=== PATIENT | male | born 1965 | race Caucasian/White ===

== ENCOUNTER 2018-10-24 04:20 | Inpatient (IN) | payer MEDICAID ==
[~2018-10-24] VITALS: Ht 175.3 cm; Wt 94.3 kg
[~2018-10-24 04:20] MED LIST: CORTISONE57 GM TP; FLEXERIL PO; HYDROCODON-ACE1 EAC7 PO; HYDROCODONE-AP1 EAC6 PO; NAPROSYN500 MG PO; PERCOCET PO; PREDNISONE 20 M20 M1 PO; ROBAXIN500 MG PO; TORADOL 10 MG T10 MG PO; ZPAK PO
[2018-10-24 04:22] VITALS: BP 122/76
[2018-10-24] MEDS ORDERED: PREDNISONE 20 M20 MG PO (04:25)
[2018-10-24] MEDS ORDERED: METFORMIN HCL500 MG PO (04:26)
[2018-10-24] MEDS ORDERED: PROTONIX 20 MG20 M1 PO (04:26)
[2018-10-24] MEDS ORDERED: FLOMAX0.4 MG PO (04:26)
[2018-10-24] MEDS ORDERED: LYRICA 75 MG CA75 MG PO (04:27)
[2018-10-24 05:01] LABS: HEMATOCRIT 39.7 % (42.0-52.0); HEMOGLOBIN 13.4 gm/dL (14.0-18.0); MCH 29.2 pg (26.0-34.0); MCHC 33.9 g/dL (28.0-37.0); MCV 86.2 fL (80.0-100.0); MPV 6.8 fl. (7.2-11.1); NUCLEATED RBCS 0 /100WBC; PLATELET COUNT* 202 thou/uL (150-400); RDW-CV 17.9 % (10.5-14.5); WBC 5.9 thou/uL (4.0-11.0)
[2018-10-24 05:20] LABS: ALBUMIN 3.4 g/dL (3.4-5.0); CREATININE 1.1 mg/dL (0.6-1.3); POTASSIUM 3.4 mmol/L (3.5-5.1); TOTAL BILIRUBIN 1.9 mg/dL (<0.1-1.0); TOTAL PROTEIN 6.6 g/dL (6.4-8.2)
[2018-10-24 06:26] LABS: ABSOLUTE BASOPHILS 0.1 thou/uL (0.0-0.2); ABSOLUTE EOSINOPHILS 0.1 thou/uL (0.0-0.7); ABSOLUTE LYMPHOCYTES 0.6 thou/uL (0.8-5.3); ABSOLUTE MONOCYTES 0.2 thou/uL (0.0-1.2); ANISOCYTOSIS 1+; MACROCYTES 1+; PLATELET ESTIMATE ADEQUATE
[2018-10-24 07:50] VITALS: BP 130/67
[2018-10-24 09:46] LABS: AMP/METHAMP Negative (Negative); BARBITURATES Negative (Negative); BENZODIAZEPINES Negative (Negative); COCAINE Negative (Negative); METHADONE Negative (Negative); OPIATES Negative (Negative); PCP Negative (Negative); THC Negative (Negative)
[2018-10-24 17:16] VITALS: BP 98/56
[2018-10-24 20:25] VITALS: BP 113/68
[2018-10-25 05:07] LABS: ABSOLUTE LYMPHOCYTES 1.1 thou/uL (0.8-5.3); ABSOLUTE MONOCYTES 0.3 thou/uL (0.0-1.2); BASOPHILS 0.4 %; EOSINOPHILS 0.5 %; HEMATOCRIT 32.1 % (42.0-52.0); LYMPHOCYTES 23.7 %; MCH 30.1 pg (26.0-34.0); MONOCYTES 7.5 %; NUCLEATED RBCS 0 /100WBC; PLATELET COUNT* 176 thou/uL (150-400); POLYS 67.9 %; RBC 3.73 mil/uL (4.50-6.00); RDW-CV 18.6 % (10.5-14.5); WBC 4.5 thou/uL (4.0-11.0)
[2018-10-25 05:11] LABS: CALCIUM 7.2 mg/dL (8.5-10.1); CREATININE 0.9 mg/dL (0.6-1.3)
[2018-10-25 05:53] LABS: HEMOGLOBIN 11.2 gm/dL (14.0-18.0)
[2018-10-25 06:09] LABS: POTASSIUM 2.9 mmol/L (3.5-5.1)
[2018-10-25 08:00] VITALS: BP 113/73
[2018-10-25 12:14] LABS: CALCIUM 7.3 mg/dL (8.5-10.1); CREATININE 0.9 mg/dL (0.6-1.3); MAGNESIUM 1.6 mg/dL (1.8-2.4); PHOSPHORUS* 2.2 mg/dL (2.5-4.9); POTASSIUM 3.5 mmol/L (3.5-5.1)
--- NOTE | 2018-10-25 14:23 | CON ---
[address] [address] CONSULTATION Name: ROXANA LEBLANC Room: [address] M.R.#: [id number] Admission: 10/24/18 Attend Phys: Viral Wolf MD Discharge: Date of : 67 Report #: [id number] THIS REPORT FOR: //name// CC: [facility] physician/PCP Viral Wolf DATE OF SERVICE: 10/24/2018 HISTORY OF PRESENT ILLNESS: This is a 53-year-old male patient who was evaluated by me for the possibility of CIDP. The history is not very clear. It looks like the patient had been to the multiple hospitals. At first, he was at [facility]. He indicated that he did not get along with the neurologist there and he fired the neurologist. Subsequently, he went to [facility]. He apparently had workup there. Presently, he follows up with [facility]. 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 He does indicate that he had a spinal tap and had 3 EMGs. He went to [facility] and they gave him 1 dose of gamma globulin. He tells me that they did not have any more gamma globulin and that is why, they did not give him. He indicates that he is on disability because of the CIDP. REVIEW OF SYSTEMS: Indicate that he was admitted with vomiting and diarrhea. He indicated that it is because of food poisoning. He said he is having some tingling and numbness in the feet and that is how his CIDP starts. He had some ear infections in the past. That was his relevant 14-point review of system. 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 I do not have any records, which confirmed that. FAMILY HISTORY: Negative for any hereditary neuropathy. SOCIAL HISTORY: He says he does not drink any alcohol or use any drugs. PHYSICAL EXAMINATION: Indicate that the patient is alert. He talks very softly. He gets very protective about his diagnosis of CIDP and history becomes pretty unstructured at that time. Cranial nerve examination 2-12 appears unremarkable. He has reasonable strength in all 4 extremities. He indicates his position sense is intact in both lower extremities. His touch is present. His reflexes are diminished. There is no meningeal sign. There is no carotid bruit. His blood pressure is 130/67, respirations 18, pulse is 115, temperature is 99.1. LABORATORY DATA: White count is 5.9. Sodium is 146 and his blood sugar is 179. IMPRESSION: This patient is admitted with gastrointestinal symptoms, but neurological consultation was requested for [place] [address] CONSULTATION Name: ROXANA LEBLANC Room: [address] [place] .#: [id number] Admission: 10/24/18 Attend Phys: Viral Wolf MD Discharge: Date of : 67 Report #: [id number] polyneuropathy. 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 Very poor history is available in that regard. His blood sugar is high and we need to consider the diagnosis of diabetes also. I discussed all of it with the patient, he was not very happy about this discussion. I will basically watch him. Check his hemoglobin A1c. I will await his records. I will check his vital capacity one time. I discussed all of it with the patient. Time spent 50 minutes, more than half the time spent counseling and coordinating his care. I talked to the nurses as well as talked to the hospitalist. <ELECTRONICALLY SIGNED> By: Luis Enrique Coffman MD 10/25/18 1423 [id number] Enrique Coffman MD /nt
[2018-10-25 17:36] VITALS: BP 113/84
[2018-10-25 20:00] VITALS: BP 135/64
[2018-10-26 08:00] VITALS: BP 121/86
[2018-10-26 11:02] VITALS: BP 121/86
[2018-10-26 11:44] LABS: CALCIUM 8.5 mg/dL (8.5-10.1); CREATININE 0.8 mg/dL (0.6-1.3)
== END 2018-10-26 13:50 | disposition home or self-care (01) | DRG 392 ==
LOC: M.ERS 04:20 → M.3W 06:08 → M.TBA-ER 06:08 → M.3W 07:56
PROVIDERS: Emergency Medicine; Internal Medicine; ADMIT Family Medicine
DX: K52.9 Noninfective gastroenteritis and colitis, unspecified (principal); G61.81 Chronic inflammatory demyelinating polyneuritis; E86.0 Dehydration; E87.6 Hypokalemia; E83.42 Hypomagnesemia; E83.51 Hypocalcemia; Z88.6 Allergy status to analgesic agent; Z88.1 Allergy status to other antibiotic agents; Z88.8 Allergy status to other drugs, medicaments and biological substances; Z79.899 Other long term (current) drug therapy